=== PATIENT | male | born 1950 | race Caucasian/White ===

== ENCOUNTER 2021-11-27 14:41 | Inpatient (IN) | payer BC, OTHER ==
[~2021-11-27] VITALS: Ht 177.8 cm; Wt 106.1 kg
[2021-11-27 15:00] VITALS: BP_SYST 132
--- NOTE | 2021-11-27 15:39 | NUR ---
DR. GIORDANO IN AMBULACE ASSESSING PATIENT. COVID, MRSA AND FLU SWABS OBTAINED AND SENT TO LAB.
[2021-11-27 16:04] LABS: BASOPHILS # (AUTO) 0.1 K/uL (0.0-0.2); BASOPHILS % (AUTO) 0.7 % (0.0-2.0); EOSINOPHILS % (AUTO) 0.3 % (0.0-4.0); HEMATOCRIT 29.7 % (36-54); HEMOGLOBIN 9.5 g/dL (14.0-18.0); LYMPHOCYTES # (AUTO) 0.9 K/uL (1.0-5.5); LYMPHOCYTES % (AUTO) 5.3 % (20.5-51.5); MEAN CORPUSCULAR HEMOGLOBIN 29 pg (27-31); MEAN CORPUSCULAR HGB CONC 32 % (32-36); MEAN CORPUSCULAR VOLUME 92 fL (79.0-98.0); MONOCYTES # (AUTO) 1.2 K/uL (0.0-1.0); NEUTROPHILS # (AUTO) 14.3 K/uL (1.8-7.7); NEUTROPHILS % (AUTO) 86.7 % (40.0-70.0); PLATELET COUNT (AUTO) 216 K/uL (130-430); RED BLOOD CELL COUNT(AUTO) 3.23 MIL/uL (4.2-6.2); RED CELL DISTRIBUTION WIDTH 14.7 % (9.0-15.0); WHITE BLOOD COUNT (AUTO) 16.5 K/uL (4.8-10.8)
--- NOTE | 2021-11-27 16:12 | NUR ---
Placed in room 07 . Placed on cardiac technologist, blood pressure machine and pulse oximeter. To gown for exam. Side rails up. Report given to GERALDINE TREADWELL
--- NOTE | 2021-11-27 16:21 | NUR ---
X-Ray being done at bedside.
[2021-11-27 16:30] LABS: INR 1.1 (0.80-1.20); PROTHROMBIN TIME 11.1 SECS (9.5-12.5)
[2021-11-27] MEDS ORDERED: NS 500 ML IV ONE (16:30)
--- NOTE | 2021-11-27 16:30 | NUR ---
EKG performed at by [facility]. Physician given copy of EKG for review.
[2021-11-27 16:32] LABS: POTASSIUM 3.4 mmol/L (3.5-5.1); UREA NITROGEN, BLOOD 34 mg/dL (8-21)
--- NOTE | 2021-11-27 16:34 | NUR ---
# 20 gauge angiocath placed to left AC. Use of asceptic technique. Opsite placed over site. Blood return noted. Flushed with 10 cc of normal saline. No evidence of infiltration noted. Patient tolerated well.
[2021-11-27 16:42] LABS: ANION GAP 12 (5-15); CHLORIDE 101 mmol/L (98-107); CREATININE 2.27 mg/dL (0.55-1.30); GLUCOSE 131 mg/dL (70-99)
[2021-11-27] MEDS ORDERED: PIPERACILLIN/TAZO 3.375 GM in NS 50 ML IV ONE (16:45)
[2021-11-27] MEDS ORDERED: VANCOMYCIN HCL 1,000 MG in NS 250 ML IV ONE (16:45)
[2021-11-27] MEDS ORDERED: ACETAMINOPHEN 500 MG TABLET PO ONE (16:45)
[2021-11-27 17:03] LABS: ALANINE AMINOTRANSFERASE 13 U/L (12-78); ALBUMIN 2.1 g/dL (3.4-4.8); ASPARTATE AMINOTRANSFERASE 27 U/L (10-37); FREE T4 (FREE THYROXINE) 1.2 ng/dl (0.8-1.5); LIPASE 44 U/L (73-393); THYROID STIMULATING HORMONE 4.83 uIu/mL (0.36-3.74); TOTAL BILIRUBIN 0.4 mg/dL (0.0-1.0)
[2021-11-27] MEDS ORDERED: VANCOMYCIN HCL 1000 MG/VIAL IV ONE (17:10)
[2021-11-27] MEDS ORDERED: PIPERACILLIN/TAZOBACTAM 3.375 GM/VIAL (ZOSYN) IV ONE (17:11)
[2021-11-27] MEDS ORDERED: FUROSEMIDE 40 MG/4 ML VIAL IVP ONE (17:15)
[2021-11-27 17:40] LABS: GFR AFRICAN AMERICAN 37 mL/min (>90)
[2021-11-27] MEDS ORDERED: METO25TA6 PO (17:52)
[2021-11-27] MEDS ORDERED: GLUC1VIA14 IM (17:52)
[2021-11-27] MEDS ORDERED: INSU100V46 SQ (17:52)
[2021-11-27] MEDS ORDERED: INSU100V11 SQ (17:52)
[2021-11-27] MEDS ORDERED: HYDR-3919 PO (17:52)
[2021-11-27] MEDS ORDERED: BISA10SU65 RC (17:52)
[2021-11-27] MEDS ORDERED: NEU300 PO (17:52)
[2021-11-27] MEDS ORDERED: ASPI-524 PO (17:52)
[2021-11-27] MEDS ORDERED: LIP40 PO (17:52)
[2021-11-27] MEDS ORDERED: TAMS0.4C96 PO (17:52)
[2021-11-27] MEDS ORDERED: ACET325T39 PO (17:52)
[2021-11-27] MEDS ORDERED: IPRA3AMP9 INH (17:52)
[2021-11-27] MEDS ORDERED: HYDR-3917 PO (17:52)
[2021-11-27] MEDS ORDERED: AMIO200T66 PO (17:52)
[2021-11-27] MEDS ORDERED: MULT15TA3 PO (17:52)
[2021-11-27] MEDS ORDERED: LACT10SO66 PO (17:52)
[2021-11-27] MEDS ORDERED: SPIR25TA PO (17:52)
[2021-11-27] MEDS ORDERED: PRO40 PO (17:52)
[2021-11-27] MEDS ORDERED: VITA-285 PO (17:52)
[2021-11-27] MEDS ORDERED: CLOP75TA2 PO (17:52)
[2021-11-27] MEDS ORDERED: FURO-149 PO (17:52)
[2021-11-27] MEDS ORDERED: MELA1TAB17 PO (17:52)
[2021-11-27] MEDS ORDERED: NITROGLYCERIN 0.4 MG TAB.SUBL SL ONE (18:00)
--- NOTE | 2021-11-27 18:30 | NUR ---
Dr. Patel notified of pt's temp at 99.1F and HR fluctuating from 110 to 150's. No new orders at this time.
--- NOTE | 2021-11-27 18:43 | NUR ---
Admit bed requested Patient will be admitted to care of . Admitted TELEMETRY unit. Diagnosis NSTEMI PNEUMONIA Inpatient (Yes or No) YES Observation (Yes or No) NO Orientation concerns or request close to nursing station (Yes or No) NO Covid Status NEG On vent or bipap 3 L NC Isolation requirements NO Needs a NO From Home (Yes or if No enter name of facility) YES, [facility] Requires Dialysis (Yes or No) NO Med Rec Completed (Yes of No) YES
--- NOTE | 2021-11-27 18:43 | NUR ---
Update given to Dr. Roxy Huddleston
[2021-11-27] MEDS ORDERED: *HEPARIN PER PHARMACY XX ONE (18:45)
[2021-11-27] MEDS ORDERED: HEPARIN SODIUM,PORCINE 2000 UNITS/0.4 ML BOLUS IVP PRN (19:00)
[2021-11-27] MEDS ORDERED: HEPARIN SODIUM,PORCINE 3000 UNITS/0.6 ML BOLUS IVP PRN (19:00)
[2021-11-27] MEDS ORDERED: HEPARIN SODIUM,PORCINE 5,000 UNITS/ML VIAL IVP ONE (19:15)
--- NOTE | 2021-11-27 19:52 | NUR ---
Received report from AM RN Pt resting comfortably in bed AOX4 VSS Sinus tachy Able to make needs known NAD at this time Will continue to monitor
--- NOTE | 2021-11-27 23:49 | NUR ---
Patient will be admitted to [id number]. Belongings list completed. Complete and up to date summary report printed. SBAR report to be given at bedside with opportunity for questions.
[2021-11-27 23:50] VITALS: BP_SYST 115
[2021-11-28] VITALS (7 sets, daily range): BP systolic 108–127
--- NOTE | 2021-11-28 | NUR ---
pt.received via er-dept.pt.presents heparin-drip.rate;conc;1000-u/hr=10ml/hr.pt.presents o2 therapy via nasal cannulae.rate; 2l/min:o2-sat%=96%.pt.incontinent.pt.presents activity status bedrest.pt.presents wounds lower extremities bilateral.call light/telephone placed w/in access of the pt.
[2021-11-28] MEDS ORDERED: D5W 1,000 ML IV PRN (04:45)
[2021-11-28] MEDS ORDERED: DEXTROSE 50% JECT 50 ML DISP.SYRIN IVP PRN (04:45)
[2021-11-28] MEDS ORDERED: GLUCOSE (DEXTROSE) ORAL GEL -Adults PO PRN (04:45)
--- NOTE | 2021-11-28 06:30 | NUR ---
pt.assessed.heparin-drip infusing.ptt lab drawn@[id number].pt.cleaned/repositioned.blood glucose assessed value;152mg/dl. pt.weighed per chf/lasix administration protocol.no c/o pain,nausea.02-sat%=95%.call light/telephone placed w/in access of the pt.
[2021-11-28 06:43] LABS: BASOPHILS # (AUTO) 0.1 K/uL (0.0-0.2); BASOPHILS % (AUTO) 0.3 % (0.0-2.0); HEMATOCRIT 27.2 % (36-54); LYMPHOCYTES # (AUTO) 1.8 K/uL (1.0-5.5); LYMPHOCYTES % (AUTO) 8.7 % (20.5-51.5); MEAN CORPUSCULAR HEMOGLOBIN 30 pg (27-31); MEAN CORPUSCULAR HGB CONC 33 % (32-36); MEAN CORPUSCULAR VOLUME 92 fL (79.0-98.0); MONOCYTES # (AUTO) 1.3 K/uL (0.0-1.0); MONOCYTES % (AUTO) 6.2 % (1.7-9.3); NEUTROPHILS # (AUTO) 17.8 K/uL (1.8-7.7); NEUTROPHILS % (AUTO) 84.8 % (40.0-70.0); PLATELET COUNT (AUTO) 221 K/uL (130-430); RED BLOOD CELL COUNT(AUTO) 2.97 MIL/uL (4.2-6.2); RED CELL DISTRIBUTION WIDTH 14.7 % (9.0-15.0)
[2021-11-28 07:06] LABS: ALBUMIN 2.2 g/dL (3.4-4.8); CALCIUM 8.5 mg/dL (8.4-11.0); CREATININE 2.38 mg/dL (0.55-1.30); POTASSIUM 3.2 mmol/L (3.5-5.1); TOTAL BILIRUBIN 0.4 mg/dL (0.0-1.0)
[2021-11-28] MEDS: FUROSEMIDE 40 MG/4 ML VIAL IVP SCH ×2 (09:11→21:09)
[2021-11-28] MEDS ORDERED: FUROSEMIDE 40 MG/4 ML VIAL IVP SCH (09:15)
[2021-11-28] MEDS ORDERED: ACETAMINOPHEN 325 MG TABLET PO PRN (09:15)
[2021-11-28] MEDS ORDERED: METOPROLOL TARTRATE 25 MG TABLET PO ONE (09:45)
--- NOTE | 2021-11-28 10:00 | NUR ---
CONSULT: CARDIO CARDIAC CONSULT DR. CARLISLE [phone] S/W: BILL. OFFICE STAFF. DR. CARLISLE IS HERE AND IS AWARE.
--- NOTE | 2021-11-28 10:00 | NUR ---
Dr Herrera requested records from [facility]. Spoke to Niya from Release of Medical Info Unit. Confirmed request received and records will be sent later today.
[2021-11-28] MEDS: cefTRIAXone 1 GM in D5W 50 ML IV SCH (10:29)
--- NOTE | 2021-11-28 11:57 | NUR ---
blood sugar of 162mg/dl at lunch time not covered by insulin patient NPO for abdominal ultrasound today at 1600.
[2021-11-28] MEDS: IPRATROPIUM/ALBUTEROL SULFATE 3 ML AMPUL.NEB (DUONEB) INH SCH ×2 (13:32→19:58)
[2021-11-28] MEDS: GABAPENTIN 300 MG CAPSULE PO SCH (21:07)
[2021-11-28] MEDS: METOPROLOL TARTRATE 25 MG TABLET PO SCH (21:08)
[2021-11-28] MEDS: ATORVASTATIN 20 MG TABLET PO SCH (21:08)
[2021-11-28] MEDS: INSULIN REGULAR, HUMAN 100 UNITS/ML, 10 ML VIAL (humuLIN R) SUBCUT PRN (21:12)
[2021-11-28] MEDS ORDERED: HEPARIN 25,000 UNITS/D5W 250ML 250 ML IV ONE (21:18)
[2021-11-28] MEDS: HEPARIN 25,000 UNITS in 250 ML PREMIX IV PRN (21:19)
[2021-11-29] MEDS: IPRATROPIUM/ALBUTEROL SULFATE 3 ML AMPUL.NEB (DUONEB) INH SCH ×4 (01:00→20:14)
[2021-11-29 01:41] VITALS: BP_SYST 103
[2021-11-29] MEDS: INSULIN REGULAR, HUMAN 100 UNITS/ML, 10 ML VIAL (humuLIN R) SUBCUT PRN ×2 (05:53→22:30)
[2021-11-29 06:42] LABS: BASOPHILS # (AUTO) 0.1 K/uL (0.0-0.2); BASOPHILS % (AUTO) 0.4 % (0.0-2.0); EOSINOPHILS # (AUTO) 0.3 K/uL (0.0-0.4); EOSINOPHILS % (AUTO) 1.6 % (0.0-4.0); HEMATOCRIT 27.5 % (36-54); HEMOGLOBIN 9.1 g/dL (14.0-18.0); LYMPHOCYTES # (AUTO) 1.8 K/uL (1.0-5.5); LYMPHOCYTES % (AUTO) 10.1 % (20.5-51.5); MEAN CORPUSCULAR HEMOGLOBIN 30 pg (27-31); MEAN CORPUSCULAR HGB CONC 33 % (32-36); MEAN CORPUSCULAR VOLUME 92 fL (79.0-98.0); MONOCYTES # (AUTO) 1.1 K/uL (0.0-1.0); MONOCYTES % (AUTO) 5.9 % (1.7-9.3); NEUTROPHILS # (AUTO) 14.6 K/uL (1.8-7.7); PLATELET COUNT (AUTO) 199 K/uL (130-430); RED BLOOD CELL COUNT(AUTO) 3.01 MIL/uL (4.2-6.2); WHITE BLOOD COUNT (AUTO) 17.9 K/uL (4.8-10.8)
[2021-11-29 07:19] LABS: CALCIUM 7.6 mg/dL (8.4-11.0); CREATININE 1.52 mg/dL (0.55-1.30); POTASSIUM 3.4 mmol/L (3.5-5.1); TOTAL BILIRUBIN 0.3 mg/dL (0.0-1.0)
[2021-11-29] MEDS: cefTRIAXone 1 GM in D5W 50 ML IV SCH (10:00)
[2021-11-29] MEDS: ASPIRIN 81 MG TAB.CHEW PO SCH (10:20)
[2021-11-29] MEDS: TAMSULOSIN HCL 0.4 MG CAP PO SCH (10:20)
[2021-11-29] MEDS: METOPROLOL TARTRATE 25 MG TABLET PO SCH ×2 (10:20→22:11)
[2021-11-29] MEDS: SPIRONOLACTONE 25 MG TABLET (ALDACTONE) PO SCH (10:21)
[2021-11-29] MEDS: FUROSEMIDE 40 MG/4 ML VIAL IVP SCH ×2 (10:22→22:14)
[2021-11-29] MEDS: LACTULOSE 20 GM/30 ML UDC PO SCH (11:41)
[2021-11-29] MEDS: PANTOPRAZOLE SODIUM 40 MG TAB PO SCH (11:42)
[2021-11-29 12:02] VITALS: BP_SYST 114
[2021-11-29] MEDS: AZITHROMYCIN 250 MG in NS 250 ML IV SCH (13:26)
--- NOTE | 2021-11-29 16:30 | NUR ---
WOUND EVALUATION: Late note for 11/29/2021 at 1630 secondary to patient care. Wound Consult received from Dr. Guerrero. Thank you, Dr. Guerrero, for the consult. Patient received in a [place] Bed with an Isoflex WILLI mattress, awake, alert, and oriented. Patient is unable to turn independently. Diego Score is a 16. Past Medical History: Coronary Artery Disease, CABG, Neuropathy, Essential Hypertension, Insulin-Dependent Diabetes Mellitus, Atrial Fibrillation, severe Cardiomyopathy. Recent Labs: WBC 17.9, RBC 3.01, hemoglobin 9.1, hematocrit 27.5, potassium 3.4, BUN 45, creatinine 1.52, GFR 49, glucose 163, POC glucose 182, calcium 7.6, serum total protein 6.2, BNP 1360, albumin 2.0, PTT 28.3. Microbiology: MRSA screen results negative. Blood culture results x2 in progress. Pleural fluid culture results in progress. Body fluid culture results in progress. Intrinsic factors that delay wound healing: Coronary Artery Disease, CABG, Neuropathy, Insulin-Dependent Diabetes Mellitus, Atrial Fibrillation, severe Cardiomyopathy, Hyperglycemia, Hypoalbuminemia. Extrinsic factors that delay wound healing: Decreased mobility. Wound Assessment: 1. Left Proximal Medial Calf: Wound, probable venous insufficiency ulcer, present on admission. Wound bed has 100% yellow eschar. No odor, no drainage. Dry, stable. Extremity and foot have dry scaly skin can and 4+ pitting edema. Wound measures 2.7 cm x 2.9 cm. 2. Left Distal Medial Calf: Wound, present on admission. Wound bed has 100% brown eschar. No odor, no drainage. Periwound intact. Dry, stable. Extremity and foot have dry scaly skin can and 4+ pitting edema.Wound measures 1.4 cm x 1.1 cm. 3. Right Distal Anterior Forman: Two small brown scabs, present on admission. No odor, no drainage. Dry, stable. Extremity and foot have dry scaly skin can and 4+ pitting edema. Recommend: No dressings needed. Continue to monitor sites every shift. Apply Eucerin cream to bilateral lower extremities twice daily. Also recommend: Reposition patient every 2 hours with pillow support and off-load pressure areas with pillows for pressure re-distribution. Offload, elevate and float bilateral heels with pillows. Perform skin care and monitor skin integrity Q shift.
[2021-11-29 16:32] VITALS: BP_SYST 94
--- NOTE | 2021-11-29 16:59 | NUR ---
Dietitian Recommendations * CCHO, cardiac diet, Glucerna BID, Antonio BID (supplements yield an additional 840 kcal/day, 35 gm protein/day) * Encourage increase PO intakes LP, MS, RD Please refer to Nutrition Assessment for details. Addendum: 11/29/21 at [address] Amended: Links added.
[2021-11-29 17:45] LABS: SOURCE/TYPE ,BODY FLUID THORACENTESIS
[2021-11-29 17:46] LABS: BF APPEARANCE UNSPUN HAZY (CLEAR); BODY FLUID COLOR YELLOW (LT YELLOW)
[2021-11-29 17:47] LABS: BODY FLUID OTHER CELLS 0 %; BODY FLUID TOTAL VOLUME 350 mL; EOSINOPHIL, BODY FLUID 0 %; LYMPHOCYTES, BODY FLUID 80 %; MONOCYTES,BODY FLUID 3 %; NEUTROPHIL, BODY FLUID 17 %; RBC, BODY FLUID 6690 /uL; WBC, BODY FLUID 360 /uL
--- NOTE | 2021-11-29 19:30 | NUR ---
OPENING NOTES Received report from day nurse. Pt resting in bed with eyes closed, HOB nearly 90 degrees, and breathing slightly labored with some accessory muscle use. Respirations 24 bpm and SaO2 96%. Pt stable so left to rest, will return soon for medication administration and continue to monitor. Bed at lowest position, armed, and call light in hand.
[2021-11-29 20:00] VITALS: BP_SYST 104
[2021-11-29] MEDS: GABAPENTIN 300 MG CAPSULE PO SCH (21:54)
[2021-11-29] MEDS: ATORVASTATIN 20 MG TABLET PO SCH (21:54)
[2021-11-30] VITALS: BP_SYST 103
[2021-11-30] MEDS: IPRATROPIUM/ALBUTEROL SULFATE 3 ML AMPUL.NEB (DUONEB) INH SCH ×4 (01:00→20:08)
[2021-11-30 06:56] LABS: BASOPHILS # (AUTO) 0.1 K/uL (0.0-0.2); BASOPHILS % (AUTO) 0.5 % (0.0-2.0); EOSINOPHILS # (AUTO) 0.5 K/uL (0.0-0.4); EOSINOPHILS % (AUTO) 3.9 % (0.0-4.0); HEMATOCRIT 24.9 % (36-54); HEMOGLOBIN 8.4 g/dL (14.0-18.0); LYMPHOCYTES # (AUTO) 1.1 K/uL (1.0-5.5); LYMPHOCYTES % (AUTO) 8.1 % (20.5-51.5); MEAN CORPUSCULAR HEMOGLOBIN 31 pg (27-31); MEAN CORPUSCULAR HGB CONC 34 % (32-36); MEAN CORPUSCULAR VOLUME 91 fL (79.0-98.0); MONOCYTES % (AUTO) 7.3 % (1.7-9.3); NEUTROPHILS # (AUTO) 10.7 K/uL (1.8-7.7); NEUTROPHILS % (AUTO) 80.2 % (40.0-70.0); PLATELET COUNT (AUTO) 195 K/uL (130-430); RED BLOOD CELL COUNT(AUTO) 2.73 MIL/uL (4.2-6.2); RED CELL DISTRIBUTION WIDTH 14.9 % (9.0-15.0); WHITE BLOOD COUNT (AUTO) 13.3 K/uL (4.8-10.8)
[2021-11-30] MEDS: INSULIN REGULAR, HUMAN 100 UNITS/ML, 10 ML VIAL (humuLIN R) SUBCUT PRN ×3 (06:59→16:35)
--- NOTE | 2021-11-30 08:05 | NUR ---
Report received from nightclub manager RN Leanna for continuity ofcare. Patient in stable condition. No distress noted.
[2021-11-30 08:06] VITALS: BP_SYST 99
[2021-11-30] MEDS: METOPROLOL TARTRATE 25 MG TABLET PO SCH ×2 (09:10→21:33)
[2021-11-30] MEDS: SPIRONOLACTONE 25 MG TABLET (ALDACTONE) PO SCH (09:10)
[2021-11-30] MEDS: PANTOPRAZOLE SODIUM 40 MG TAB PO SCH (09:10)
[2021-11-30] MEDS: ASPIRIN 81 MG TAB.CHEW PO SCH (09:10)
[2021-11-30] MEDS: TAMSULOSIN HCL 0.4 MG CAP PO SCH (09:10)
[2021-11-30] MEDS: LACTULOSE 20 GM/30 ML UDC PO SCH (09:10)
[2021-11-30] MEDS: FUROSEMIDE 40 MG/4 ML VIAL IVP SCH ×2 (09:11→21:31)
[2021-11-30] MEDS: HEPARIN 25,000 UNITS in 250 ML PREMIX IV PRN (09:29)
[2021-11-30] MEDS: AZITHROMYCIN 250 MG in NS 250 ML IV SCH (09:34)
[2021-11-30 12:00] VITALS: BP_SYST 127
[2021-11-30] MEDS: cefTRIAXone 1 GM in D5W 50 ML IV SCH (12:13)
[2021-11-30] MEDS ORDERED: metOLazone 2.5 MG TABLET PO ONE (13:00)
[2021-11-30] MEDS ORDERED: EMOLLIENT COMBINATION NO.73 78 GM CREAM..G. TP ONE (14:30)
[2021-11-30 16:38] VITALS: BP_SYST 105
--- NOTE | 2021-11-30 18:00 | NUR ---
Patient stable throughout the whole shift. PTT lab checked with heparin drip adjusted.
--- NOTE | 2021-11-30 19:45 | NUR ---
OPENING NOTES Received report from day nurse. Pt laying in bed awake with HOB raised high. Pt recognized me as his nurse from previous shift and asked what was the plan for him? Pt was agitated at the lack of communication about his care and stated that he was not getting better. I provided him with as much information as I could and he was grateful. Pt was struggling to speak only being able to say a few words at a time. He abdominal girth appears larger than it did prior shift. I adjusted his position so he could expand his lungs and reduce his work of breathing. Will closely monitor the pt and communicate with RT throughout the night.
--- NOTE | 2021-11-30 19:55 | NUR ---
Report given to GERALDINE Ram for continuity of care. Patient stable condition. No distress noted. Will continue to monitor.
--- NOTE | 2021-11-30 19:56 | NUR ---
Heparin drip double checked with GERALDINE martínez. No distress noted.
[2021-11-30] MEDS: EMOLLIENT COMBINATION NO.73 78 GM CREAM..G. TP SCH (21:00)
[2021-11-30] MEDS: ATORVASTATIN 20 MG TABLET PO SCH (21:32)
[2021-11-30] MEDS: GABAPENTIN 300 MG CAPSULE PO SCH (21:33)
--- NOTE | 2021-11-30 22:05 | NUR ---
NOTES At 2205 the patient calls nurses station requesting his nurse. When I arrive, he is having difficult time breathing with rapid shallow breaths and using accessory muscles. Respirations 36, SaO2 92%. I calmed the pt and again repositioned him and raised his oxygen to 3L via nasal cannula. The interventions were effective with SaO2 increasing to 98% and respirations decreasing to 24 bpm. Will continue to monitor, call light in hand.
[2021-12-01] VITALS (14 sets, daily range): BP systolic 95–138
[2021-12-01] MEDS: IPRATROPIUM/ALBUTEROL SULFATE 3 ML AMPUL.NEB (DUONEB) INH SCH ×4 (01:57→19:44)
--- NOTE | 2021-12-01 04:05 | NUR ---
NOTES While doing rounds before lunch, pt sitting in bed visually laboring stating it was difficult to breath. He said RT had recently given him a breathing treatment and he woke up d/t difficulty breathing. Calming and repositioning helped the patient breath easier. Pt asked if I had medication to help his breathing feeling that the breathing treatments were not effective. Spoke to RT to see if there were other options. Pt was stabilized and will continue to monitor.
--- NOTE | 2021-12-01 07:00 | NUR ---
Report received from plant operator/shift supervisor RN for continuity of care. Patient in stable condition. No distress noted. Will continue to monitor. Call light within reach.
[2021-12-01] MEDS: INSULIN REGULAR, HUMAN 100 UNITS/ML, 10 ML VIAL (humuLIN R) SUBCUT PRN ×4 (08:04→21:44)
[2021-12-01 08:05] LABS: ALBUMIN 1.8 g/dL (3.4-4.8); CALCIUM 8.3 mg/dL (8.4-11.0); CREATININE 2.14 mg/dL (0.55-1.30); POTASSIUM 3.5 mmol/L (3.5-5.1); TOTAL BILIRUBIN 0.1 mg/dL (0.0-1.0)
[2021-12-01] MEDS: HEPARIN 25,000 UNITS in 250 ML PREMIX IV PRN (08:40)
[2021-12-01] MEDS: AZITHROMYCIN 250 MG in NS 250 ML IV SCH (08:50)
[2021-12-01] MEDS: LACTULOSE 20 GM/30 ML UDC PO SCH (08:51)
[2021-12-01] MEDS: ASPIRIN 81 MG TAB.CHEW PO SCH (08:51)
[2021-12-01] MEDS: TAMSULOSIN HCL 0.4 MG CAP PO SCH (08:51)
[2021-12-01] MEDS: metOLazone 2.5 MG TABLET PO SCH (08:51)
[2021-12-01] MEDS: SPIRONOLACTONE 25 MG TABLET (ALDACTONE) PO SCH (08:53)
[2021-12-01] MEDS: METOPROLOL TARTRATE 25 MG TABLET PO SCH ×2 (08:53→21:25)
[2021-12-01] MEDS: PANTOPRAZOLE SODIUM 40 MG TAB PO SCH (08:53)
[2021-12-01] MEDS: FUROSEMIDE 40 MG/4 ML VIAL IVP SCH (08:53)
[2021-12-01] MEDS: EMOLLIENT COMBINATION NO.73 78 GM CREAM..G. TP SCH ×2 (08:54→21:26)
--- NOTE | 2021-12-01 10:42 | NUR ---
Spoke with Dr. Guerrero. Called radiology for patient to be tapped for thoracentesis today. Also hold blood pressure meds for 24 hours today. Will let rehab specialist RN know.
--- NOTE | 2021-12-01 11:20 | NUR ---
TO ICU RECEIVED PT TO ROOM 6, ALERT, TACHYPNEIC, ON O2 VIA NASAL CANNULA AT 2L, TRANSFERRED TO ICU BED, SLIDER UNDER FOR EASY MOVEMENT. PT ON HEPARIN DRIP AT 1200 UNITS/HR, PTT 60. IV IN RIGHT A/C, ROCEPHIN INFUSING. BLOOD PRESSURE 118/66. BLADDER INCONTINENT, CLEAN ABSORBENT PAD PROVIDED. ABDOMEN NOTED WITH 3 STITCHES, ALL DRY.
--- NOTE | 2021-12-01 11:20 | NUR ---
Report given to GERALDINE Joy ICU. Patient in stable condition. Still having shortness of breath. Dr. Moffett and Dr. Espinoza went to see patient. Transfer order to ICU. Patient on oxygen and heparin drip. Patient still responsive to verbal commands. No distress noted. Vital signs stable. Assisted with patient transfer.
[2021-12-01] MEDS: cefTRIAXone 1 GM in D5W 50 ML IV SCH (11:50)
[2021-12-01] MEDS ORDERED: FUROSEMIDE 100 MG in D5W 90 ML IV SCH (13:15)
--- NOTE | 2021-12-01 14:26 | NUR ---
PAGED DR VOSS, AND HE RETURNED THE CALL. INFORMED HIM THAT THE MANAGER VISUAL WAS HERE AND THORACENTESIS WILL NOT BE DONE TODAY. PT'S ABDOMINAL PRESSURE IS GONE THOUGH AFTER INSERTING A ANTONIO CATHETER. PT WITH HEMATURIA. REMAINS ON HEPARIN DRIP. NEW ORDERS RECEIVED FROM .
[2021-12-01] MEDS: ALBUMIN HUMAN 25% 100 ML IV SCH ×3 (14:33→21:28)
[2021-12-01] MEDS: ATORVASTATIN 20 MG TABLET PO SCH (21:24)
[2021-12-01] MEDS: GABAPENTIN 300 MG CAPSULE PO SCH (21:25)
--- NOTE | 2021-12-01 23:33 | NUR ---
Spoke with Dr Guerrero regarding continued blood diuresis of 2L since 1800. Notified of heparin and lasix gtts running and rates. Dr Guerrero asked undersigned to page Dr Herrera for orders. Dr Herrera being paged by charge nurse.
[2021-12-02] VITALS (22 sets, daily range): BP systolic 93–117
[2021-12-02] MEDS: IPRATROPIUM/ALBUTEROL SULFATE 3 ML AMPUL.NEB (DUONEB) INH SCH ×4 (01:07→20:21)
[2021-12-02 01:41] LABS: BASOPHILS # (AUTO) 0.1 K/uL (0.0-0.2); BASOPHILS % (AUTO) 0.5 % (0.0-2.0); EOSINOPHILS # (AUTO) 0.6 K/uL (0.0-0.4); HEMATOCRIT 23.7 % (36-54); LYMPHOCYTES # (AUTO) 1.4 K/uL (1.0-5.5); LYMPHOCYTES % (AUTO) 14.6 % (20.5-51.5); MEAN CORPUSCULAR HEMOGLOBIN 31 pg (27-31); MEAN CORPUSCULAR HGB CONC 34 % (32-36); MEAN CORPUSCULAR VOLUME 92 fL (79.0-98.0); MONOCYTES # (AUTO) 1.1 K/uL (0.0-1.0); MONOCYTES % (AUTO) 10.8 % (1.7-9.3); NEUTROPHILS # (AUTO) 6.6 K/uL (1.8-7.7); NEUTROPHILS % (AUTO) 68.1 % (40.0-70.0); PLATELET COUNT (AUTO) 180 K/uL (130-430); RED BLOOD CELL COUNT(AUTO) 2.58 MIL/uL (4.2-6.2); RED CELL DISTRIBUTION WIDTH 14.9 % (9.0-15.0); WHITE BLOOD COUNT (AUTO) 9.8 K/uL (4.8-10.8)
[2021-12-02 01:49] LABS: CALCIUM 8.9 mg/dL (8.4-11.0); CREATININE 1.96 mg/dL (0.55-1.30)
[2021-12-02] MEDS ORDERED: POTASSIUM CHLORIDE 20 MEQ TAB.PRT.SR PO ONE ×2 (04:45→11:00)
[2021-12-02] MEDS: SPIRONOLACTONE 25 MG TABLET (ALDACTONE) PO SCH (09:24)
[2021-12-02] MEDS: ASPIRIN 81 MG TAB.CHEW PO SCH (09:25)
[2021-12-02] MEDS: FUROSEMIDE 40 MG/4 ML VIAL IVP SCH ×2 (09:25→20:36)
[2021-12-02] MEDS: LACTULOSE 20 GM/30 ML UDC PO SCH (09:25)
[2021-12-02] MEDS: TAMSULOSIN HCL 0.4 MG CAP PO SCH (09:25)
[2021-12-02] MEDS: METOPROLOL TARTRATE 25 MG TABLET PO SCH ×2 (09:26→20:37)
[2021-12-02] MEDS: CLOPIDOGREL BISULFATE 75 MG TABLET PO SCH (09:26)
[2021-12-02] MEDS: PANTOPRAZOLE SODIUM 40 MG TAB PO SCH (09:26)
[2021-12-02] MEDS: metOLazone 2.5 MG TABLET PO SCH (09:26)
[2021-12-02] MEDS: EMOLLIENT COMBINATION NO.73 78 GM CREAM..G. TP SCH ×2 (09:27→20:37)
[2021-12-02] MEDS: AZITHROMYCIN 250 MG in NS 250 ML IV SCH (09:28)
[2021-12-02] MEDS ORDERED: CEFEPIME 1 GM in D5W 50 ML IV ONE (10:00)
[2021-12-02] MEDS ORDERED: POTASSIUM CHLORIDE 20 MEQ TAB.PRT.SR ONE (11:02)
[2021-12-02] MEDS: INSULIN REGULAR, HUMAN 100 UNITS/ML, 10 ML VIAL (humuLIN R) SUBCUT PRN (11:13)
--- NOTE | 2021-12-02 13:03 | NUR ---
I.D CONSULT PATIENT WAS EXAMINED BY DR QUIROZ.
--- NOTE | 2021-12-02 13:30 | NUR ---
Nutrition F/U Admitting Diagnosis NSTEMI, pneumonia Reviewed Pertinent Medical/Surgical Hx Medical Record Patient Other Medical History Comment: PMH: CAD, CABG, neuropathy, essential HTN, IDDM, atr fibr, and severe cardiomyopathy per physician notes Pt also found w/ CHF, CAD, and fever likely pneumonia per physician notes Subjective Information Nutrition Consult received 11/28/21 0222 d/t diabetic cellulitis. RD rounded to pt's bedside this afternoon. Primary RN providing care. Pt was sleeping, visibly obese w/ excessive adiposity throughout entire body. RN reported that pt ate well at lunch, was NPO at breakfast for thoracentesis, and that pt has been sleepy since lunch. RN reported that pt had 325 ml out during thoracentesis, and was pending abd US this afternoon. Plan for strict I&O w/ condom catheter and no current plan for FR at this time per RN report. Per EMR review, pt is on 3 l O2 via NC; negligible PO intakes noted. Pt is not yet meeting optimal nutritional needs. Current Diet Order/Nutrition Support CCHO x1 day Patient/Significant Other Unable To Verbalize Education Provided Not Indicated Pertinent Medications aldactone, protonix, lactulose, lopressor, lipitor, lasix, SSI Pertinent Labs K 3.4 L, BG 163 H, POC BG 164 H, BUN 45 H, CRE 1.52 H, ALB 2 L, WBC 17.9 H Height (Feet) 5 feet Height (Inches) 10.00 inches Weight (Pounds) 234 pounds Weight (Calculated Kilograms) 106.331939 kilograms Patient Weight 106.141 kg Body Mass Index 33.57 kg/m2 %IBW [address] [place]/Adjusted Body Weight 166#/75.5 kg. 183#/83.2 kg Recent Weight Change Unable to verify Weight Status Obese Food Allergies Unable to verify Usual Diet At Home CCHO per nursing nutritional screening Skin Integrity Comment: Diego scale: 13 -- abd incision/sutures intact to 3 lap sites and medial R calf w/ dry scab per EMR revoewRN reported sacrum w/ stage 2 wound; RD reviewed hard chart wound photos Estimated Energy Expenditure (kcals/day) 6162-0684 (30-35 kcal/kg IBW d/t acute state, wound healing, obesity) Estimated Protein Required (g/day) 91-113 (1.2-1.5 gm/kg IBW d/t acute state, wound healing, obesity) Estimated Fluid Required (l/day) Per physician d/t CHF Problem/Etiology/Signs/Symptoms Increased nutritional needs R/T metabolic demands AEB estimated nutritional requirements for acute state/wound healing. *Ongoing Altered nutrition-related labs R/T endocrine dysfunction AEB elevated BG/POC BG lab values. *Ongoing Expected Outcomes/Goals - Monitor appetite and PO intakes w/ goal of pt meeting >75% of estimated nutritional needs, labs trending WNL, normal GI function, and skin integrity/wt maintenance Dietitian Recommendations * Continue CCHO, cardiac diet, Glucerna BID, Antonio BID (supplements yield an additional 840 kcal/day, 35 gm protein/day) * Maximum encouragement at meal times to increase PO intakes Follow Up High Risk: F/U in 2-3days Addendum: 12/02/21 at [address] PLEASE DISREGARD NOTE. ENTERED IN ERROR.
--- NOTE | 2021-12-02 13:30 | NUR ---
Nutrition F/U Admitting Diagnosis NSTEMI, pneumonia Reviewed Pertinent Medical/Surgical Hx Medical Record Patient Other Medical History Comment: PMH: CAD, CABG, neuropathy, essential HTN, IDDM, atr fibr, and severe cardiomyopathy per physician notes Pt also found w/ CHF, CAD, fever likely pneumonia, and CKD per physician notes Subjective Information: RD rounded to ICU this afternoon. Pt was receiving BT w/ RT at bedside during RD rounds. Primary RN reported that pt seems to be having some anxiety and very low appetite. He reported that pt was transferred to ICU yesterday morning d/t SOB and chest pain. Per EMR review, plans for F/U chest XR and L thoracentesis tomorrow; pt is on 3 L O2 via NC; suspected poor appetite; abd is soft w/ active bowel sounds; LBM x2 12/01; 2+ pitting edema to BLE. RD called pt's son Loy to inquire about pt's food preferences. He stated that pt prefers sweets (ie: fruit cocktail, yogurt, puddings) and soups. Current diet order remains appropriate, however, maximum encouragement at meal times is warranted to prevent malnutrition. Current Diet Order/Nutrition Support: CCHO, Cardiac diet, Glucerna BID, Antonio BID x2 days Patient/Significant Other Unable To Verbalize Education Provided Not Indicated Pertinent Medications: plavix, lasix, aldactone, protonix, lactulose, lopressor, SSI Pertinent Labs: K 3 L, BG 173 H, POC BG 166 H, BUN 39 H, CRE 1.96 H, ALB 1.8 L, WBC 9.8 WNL Height (Feet) 5 feet Height (Inches) 10.00 inches Weight (Pounds) 234 pounds -- stable since 11/29 Patient Weight 106.141 kg Body Mass Index 33.57 kg/m2 %IBW 141 [place]/Adjusted Body Weight 166#/75.5 kg. 183#/83.2 kg Recent Weight Change Unable to verify Weight Status Obese Food Allergies Unable to verify Usual Diet At Home CCHO per nursing nutritional screening Skin Integrity Comment: Diego scale: 13 -- abd incision/sutures intact to 3 lap sites and medial R calf w/ dry scab per EMR review Estimated Energy Expenditure (kcals/day) 1455-6584 (30-35 kcal/kg IBW d/t acute state, wound healing, obesity) Estimated Protein Required (g/day) 91-113 (1.2-1.5 gm/kg IBW d/t acute state, wound healing, obesity) Estimated Fluid Required (l/day) Per physician d/t CHF Problem/Etiology/Signs/Symptoms Increased nutritional needs R/T metabolic demands AEB estimated nutritional requirements for acute state/wound healing. *Ongoing Altered nutrition-related labs R/T endocrine dysfunction AEB elevated BG/POC BG lab values. *Ongoing Expected Outcomes/Goals - Monitor appetite and PO intakes w/ goal of pt meeting >75% of estimated nutritional needs, labs trending WNL, normal GI function, and skin integrity/wt maintenance Dietitian Recommendations * Continue CCHO, cardiac diet, Glucerna BID, Antonio BID (supplements yield an additional 840 kcal/day, 35 gm protein/day) * Maximum encouragement at meal times to increase PO intakes Follow Up High Risk: F/U in 2-3 days Addendum: 12/02/21 at [address] Son reported pt would prefer strawberry and chocolate-flavored Glucerna and fruit punch-flavored Antonio supplements. RD noted preferences in [employer].
--- NOTE | 2021-12-02 13:35 | NUR ---
Dietitian Recommendations * Continue CCHO, cardiac diet, Glucerna BID, Antonio BID (supplements yield an additional 840 kcal/day, 35 gm protein/day) * Maximum encouragement at meal times to increase PO intakes LP, MS, RD Please refer to Nutrition F/U for details.
[2021-12-02] MEDS: ATORVASTATIN 20 MG TABLET PO SCH (20:37)
[2021-12-02] MEDS: GABAPENTIN 300 MG CAPSULE PO SCH (20:37)
[2021-12-02] MEDS: CEFEPIME 1 GM in D5W 50 ML IV SCH (23:09)
[2021-12-03] VITALS (21 sets, daily range): BP systolic 91–127
[2021-12-03] MEDS: IPRATROPIUM/ALBUTEROL SULFATE 3 ML AMPUL.NEB (DUONEB) INH SCH ×4 (01:31→19:12)
[2021-12-03 06:24] LABS: BASOPHILS # (AUTO) 0.1 K/uL (0.0-0.2); BASOPHILS % (AUTO) 0.7 % (0.0-2.0); EOSINOPHILS # (AUTO) 0.8 K/uL (0.0-0.4); EOSINOPHILS % (AUTO) 7.1 % (0.0-4.0); HEMATOCRIT 23.1 % (36-54); HEMOGLOBIN 7.7 g/dL (14.0-18.0); LYMPHOCYTES # (AUTO) 1.5 K/uL (1.0-5.5); LYMPHOCYTES % (AUTO) 13.5 % (20.5-51.5); MEAN CORPUSCULAR HEMOGLOBIN 30 pg (27-31); MEAN CORPUSCULAR HGB CONC 34 % (32-36); MEAN CORPUSCULAR VOLUME 90 fL (79.0-98.0); MONOCYTES # (AUTO) 0.9 K/uL (0.0-1.0); NEUTROPHILS # (AUTO) 8.1 K/uL (1.8-7.7); NEUTROPHILS % (AUTO) 70.7 % (40.0-70.0); PLATELET COUNT (AUTO) 214 K/uL (130-430); RED BLOOD CELL COUNT(AUTO) 2.55 MIL/uL (4.2-6.2); RED CELL DISTRIBUTION WIDTH 14.7 % (9.0-15.0); WHITE BLOOD COUNT (AUTO) 11.5 K/uL (4.8-10.8)
[2021-12-03] MEDS: INSULIN REGULAR, HUMAN 100 UNITS/ML, 10 ML VIAL (humuLIN R) SUBCUT PRN ×3 (06:49→17:39)
[2021-12-03 07:36] LABS: ALBUMIN 2.5 g/dL (3.4-4.8); POTASSIUM 3.2 mmol/L (3.5-5.1); TOTAL BILIRUBIN 0.4 mg/dL (0.0-1.0)
[2021-12-03 07:59] LABS: CALCIUM 8.9 mg/dL (8.4-11.0); CREATININE 1.72 mg/dL (0.55-1.30)
[2021-12-03] MEDS ORDERED: LIDOCAINE 1%, 20 ML MDV 20 ML ONE (08:24)
[2021-12-03] MEDS: FUROSEMIDE 40 MG/4 ML VIAL IVP SCH ×2 (08:33→22:31)
[2021-12-03] MEDS: LACTULOSE 20 GM/30 ML UDC PO SCH (08:34)
[2021-12-03] MEDS: SPIRONOLACTONE 25 MG TABLET (ALDACTONE) PO SCH (08:34)
[2021-12-03] MEDS: TAMSULOSIN HCL 0.4 MG CAP PO SCH (08:34)
[2021-12-03] MEDS: ASPIRIN 81 MG TAB.CHEW PO SCH (08:34)
[2021-12-03] MEDS: CLOPIDOGREL BISULFATE 75 MG TABLET PO SCH (08:35)
[2021-12-03] MEDS: METOPROLOL TARTRATE 25 MG TABLET PO SCH ×2 (08:35→22:32)
[2021-12-03] MEDS: PANTOPRAZOLE SODIUM 40 MG TAB PO SCH (08:35)
[2021-12-03] MEDS: EMOLLIENT COMBINATION NO.73 78 GM CREAM..G. TP SCH ×2 (08:36→21:00)
[2021-12-03] MEDS: metOLazone 2.5 MG TABLET PO SCH (08:36)
[2021-12-03] MEDS: AZITHROMYCIN 250 MG in NS 250 ML IV SCH (08:37)
[2021-12-03] MEDS: CEFEPIME 1 GM in D5W 50 ML IV SCH (09:38)
--- NOTE | 2021-12-03 11:05 | NUR ---
Assumed care of this patient, stable but tachy, denies pain at this time, did his blood sugar and gave him his scheduled medicationsWill continue to monitor him.
[2021-12-03 15:36] LABS: BF APPEARANCE UNSPUN HAZY (CLEAR); SOURCE/TYPE ,BODY FLUID THORACENTESIS
[2021-12-03 15:37] LABS: BODY FLUID COLOR YELLOW (LT YELLOW); BODY FLUID TOTAL VOLUME 590 mL; EOSINOPHIL, BODY FLUID 0 %; LYMPHOCYTES, BODY FLUID 65 %; MONOCYTES,BODY FLUID 12 %; NEUTROPHIL, BODY FLUID 23 %; RBC, BODY FLUID 1940 /uL; WBC, BODY FLUID 180 /uL
[2021-12-03 19:43] LABS: BODY FLUID GLUCOSE 179 mg/dL; BODY FLUID TOTAL PROTEIN 3.5 g/dL
[2021-12-03] MEDS: GABAPENTIN 300 MG CAPSULE PO SCH (22:32)
[2021-12-03] MEDS: ATORVASTATIN 20 MG TABLET PO SCH (22:35)
[2021-12-04] MEDS: IPRATROPIUM/ALBUTEROL SULFATE 3 ML AMPUL.NEB (DUONEB) INH SCH ×4 (00:29→19:00)
--- NOTE | 2021-12-04 03:15 | NUR ---
Did irrigation of patients Bolivar, minimal clots came out, catheter patent with 500mls of bloody urine in bag which was emptied.
--- NOTE | 2021-12-04 05:17 | NUR ---
Went to check on patient, he had pulled out all the IV catheters and the midline, all catheters were intact, he verbalized he does not want to be pricked again, this RN explained to him the benefits of the iv with no success, to give him a little more time to settle down then to endorse to oncoming shift to talk to him if another peripheral is to be inserted,will continue to monitor him.
[2021-12-04 06:58] LABS: BASOPHILS # (AUTO) 0.1 K/uL (0.0-0.2); BASOPHILS % (AUTO) 0.6 % (0.0-2.0); EOSINOPHILS # (AUTO) 1.3 K/uL (0.0-0.4); EOSINOPHILS % (AUTO) 10.1 % (0.0-4.0); HEMATOCRIT 23.8 % (36-54); LYMPHOCYTES # (AUTO) 1.6 K/uL (1.0-5.5); LYMPHOCYTES % (AUTO) 12.9 % (20.5-51.5); MEAN CORPUSCULAR HEMOGLOBIN 30 pg (27-31); MEAN CORPUSCULAR HGB CONC 34 % (32-36); MEAN CORPUSCULAR VOLUME 90 fL (79.0-98.0); MONOCYTES # (AUTO) 0.8 K/uL (0.0-1.0); NEUTROPHILS # (AUTO) 8.9 K/uL (1.8-7.7); NEUTROPHILS % (AUTO) 70.4 % (40.0-70.0); PLATELET COUNT (AUTO) 252 K/uL (130-430); RED BLOOD CELL COUNT(AUTO) 2.65 MIL/uL (4.2-6.2); RED CELL DISTRIBUTION WIDTH 14.5 % (9.0-15.0); WHITE BLOOD COUNT (AUTO) 12.7 K/uL (4.8-10.8)
--- NOTE | 2021-12-04 07:30 | NUR ---
Report received from security shift supervisor RN for continuity of care. Patient stable condition. No distress noted. Patient refusing things from night. Orienting patient and patient agreeable to plan of care.
--- NOTE | 2021-12-04 07:30 | NUR ---
Received report from maintenance mechanic 2nd shift RN for continuity of care. Patient in stable condition. No distress noted.
--- NOTE | 2021-12-04 07:34 | NUR ---
Patient sleeping at this time, endorsed to Ehsan for continuity of care.
[2021-12-04] MEDS: LACTULOSE 20 GM/30 ML UDC PO SCH (08:11)
[2021-12-04] MEDS: metOLazone 2.5 MG TABLET PO SCH (08:11)
[2021-12-04] MEDS: PANTOPRAZOLE SODIUM 40 MG TAB PO SCH (08:12)
[2021-12-04] MEDS: EMOLLIENT COMBINATION NO.73 78 GM CREAM..G. TP SCH ×2 (08:12→20:20)
[2021-12-04] MEDS: CLOPIDOGREL BISULFATE 75 MG TABLET PO SCH (08:12)
[2021-12-04] MEDS: FUROSEMIDE 40 MG/4 ML VIAL IVP SCH (08:12)
[2021-12-04] MEDS: TAMSULOSIN HCL 0.4 MG CAP PO SCH (08:12)
[2021-12-04] MEDS: METOPROLOL TARTRATE 25 MG TABLET PO SCH (08:13)
[2021-12-04] MEDS: SPIRONOLACTONE 25 MG TABLET (ALDACTONE) PO SCH (08:13)
[2021-12-04] MEDS: ASPIRIN 81 MG TAB.CHEW PO SCH (08:13)
[2021-12-04 08:27] VITALS: BP_SYST 112
--- NOTE | 2021-12-04 10:30 | NUR ---
Patient tugging on macdonald catheter, cardiac leads, and IV. Dr. Guerrero made aware. New order noted and carried out.
[2021-12-04 11:28] VITALS: BP_SYST 106
[2021-12-04] MEDS: INSULIN REGULAR, HUMAN 100 UNITS/ML, 10 ML VIAL (humuLIN R) SUBCUT PRN ×3 (12:27→20:26)
[2021-12-04 16:30] VITALS: BP_SYST 104
[2021-12-04 19:50] VITALS: BP_SYST 109
--- NOTE | 2021-12-04 20:03 | NUR ---
Report given to date night sitter RN for continuity of care. Patient stable condition. No distress. On bilateral wrist restraints for safety.
[2021-12-04] MEDS: ATORVASTATIN 20 MG TABLET PO SCH (20:15)
[2021-12-04] MEDS: METOPROLOL TARTRATE 50 MG TABLET PO SCH (20:15)
[2021-12-04] MEDS: GABAPENTIN 300 MG CAPSULE PO SCH (20:15)
[2021-12-04] MEDS: FUROSEMIDE 40 MG TABLET PO SCH (20:16)
--- NOTE | 2021-12-04 20:45 | NUR ---
HIGH ALERT NOTE: Called Dr. Herrera back at [phone] identified within the medical roster to verify physician authenticity.
--- NOTE | 2021-12-04 20:45 | NUR ---
Paged Dr. Herrera for heart rate 130's. Spoke with Jessenia. Awaiting callback.
[2021-12-04] MEDS ORDERED: METOPROLOL TARTRATE 5 MG/5 ML VIAL IVP ONE (21:00)
--- NOTE | 2021-12-04 21:22 | NUR ---
Metoprolol IVP Pt's HR 130's, Metoprolol 2.5mg IVP administered per MD order as needed. HR down to 80's, BP stable. To monitor.
[2021-12-05 00:46] VITALS: BP_SYST 96
--- NOTE | 2021-12-05 02:30 | NUR ---
Rounds Pt asleep, no s/s distress noted. Bolivar catheter with light red drainage draining to quality. Call light within reach. To monitor .
[2021-12-05] MEDS ORDERED: METOPROLOL TARTRATE 5 MG/5 ML VIAL IVP PRN (04:00)
[2021-12-05] MEDS: IPRATROPIUM/ALBUTEROL SULFATE 3 ML AMPUL.NEB (DUONEB) INH SCH ×4 (05:34→22:40)
[2021-12-05] MEDS: INSULIN REGULAR, HUMAN 100 UNITS/ML, 10 ML VIAL (humuLIN R) SUBCUT PRN ×4 (06:13→21:36)
--- NOTE | 2021-12-05 06:15 | NUR ---
Closing notes Pt asleep, easily awakens, no s/s distress noted. O2 2L on via NC. BS checked 172, 2 units Regular insulin administered per protocol. Bolivar catheter draining to gravity with red drainage, no clots noted. Pt encouraged to call nurse for assistance and to not removed restraints. IV L. AC 22G saline locked clear and patent. Bed low, locked, siderails up x4, alarm on. To endorse to AM nurse.
[2021-12-05 06:42] LABS: BASOPHILS # (AUTO) 0.1 K/uL (0.0-0.2); BASOPHILS % (AUTO) 0.8 % (0.0-2.0); EOSINOPHILS # (AUTO) 1.4 K/uL (0.0-0.4); EOSINOPHILS % (AUTO) 11.4 % (0.0-4.0); HEMATOCRIT 24.2 % (36-54); HEMOGLOBIN 8.1 g/dL (14.0-18.0); LYMPHOCYTES # (AUTO) 1.8 K/uL (1.0-5.5); LYMPHOCYTES % (AUTO) 14.4 % (20.5-51.5); MEAN CORPUSCULAR HEMOGLOBIN 30 pg (27-31); MEAN CORPUSCULAR HGB CONC 34 % (32-36); MEAN CORPUSCULAR VOLUME 90 fL (79.0-98.0); MONOCYTES # (AUTO) 0.8 K/uL (0.0-1.0); NEUTROPHILS # (AUTO) 8.5 K/uL (1.8-7.7); NEUTROPHILS % (AUTO) 67.4 % (40.0-70.0); PLATELET COUNT (AUTO) 280 K/uL (130-430); RED CELL DISTRIBUTION WIDTH 14.7 % (9.0-15.0); WHITE BLOOD COUNT (AUTO) 12.6 K/uL (4.8-10.8)
[2021-12-05 07:07] LABS: ALANINE AMINOTRANSFERASE 33 U/L (12-78); ALBUMIN 2.4 g/dL (3.4-4.8); ASPARTATE AMINOTRANSFERASE 32 U/L (10-37); CALCIUM 9.1 mg/dL (8.4-11.0); CHLORIDE 96 mmol/L (98-107); CREATININE 1.86 mg/dL (0.55-1.30); GLUCOSE 180 mg/dL (70-99); TOTAL BILIRUBIN 0.3 mg/dL (0.0-1.0); UREA NITROGEN, BLOOD 38 mg/dL (8-21)
--- NOTE | 2021-12-05 07:15 | NUR ---
OPENING NOTE Patient sitting up in bed, no sign of distress and patient denies pain. Nasal cannula in place on 2L, oxygen saturation 95%. Patient is calm and cooperative, he is not making any attempts to pull at his macdonald or IV site, restraints removed at this time. Macdonald catheter is patent and draining pink urine to gravity. All needs met at this time and safety checks made.
[2021-12-05 07:42] LABS: GFR AFRICAN AMERICAN 47 mL/min (>90)
[2021-12-05 07:43] LABS: ANION GAP < 3 (5-15)
--- NOTE | 2021-12-05 07:43 | NUR ---
CRITICAL LAB: Laboratory called with critical lab value Co2 49. Medical record number and patient name verified. Read back of values done. Dr Herrera and Dr Timmons notified of value. New orders given at this time.
[2021-12-05 08:00] VITALS: BP_SYST 96
--- NOTE | 2021-12-05 08:16 | NUR ---
AT BEDSIDE Dr Timmons at bedside, informed him of the patient's critical lab value, CO2 49. ABG order received.
--- NOTE | 2021-12-05 08:39 | NUR ---
CRITICAL LAB: Iesha from respiratory called with critical lab value ABG result. Medical record number and patient name verified. Read back of values done. Dr Herrera notified of value. No new orders given at this time.
[2021-12-05] MEDS: LACTULOSE 20 GM/30 ML UDC PO SCH (08:53)
[2021-12-05] MEDS: METOPROLOL TARTRATE 50 MG TABLET PO SCH ×2 (08:53→21:00)
[2021-12-05] MEDS: ASPIRIN 81 MG TAB.CHEW PO SCH (08:53)
[2021-12-05] MEDS: TAMSULOSIN HCL 0.4 MG CAP PO SCH (08:54)
[2021-12-05] MEDS: PANTOPRAZOLE SODIUM 40 MG TAB PO SCH (08:54)
[2021-12-05] MEDS: CLOPIDOGREL BISULFATE 75 MG TABLET PO SCH (08:54)
[2021-12-05] MEDS: SPIRONOLACTONE 25 MG TABLET (ALDACTONE) PO SCH (08:57)
[2021-12-05] MEDS: FUROSEMIDE 40 MG TABLET PO SCH (08:58)
[2021-12-05] MEDS: metOLazone 2.5 MG TABLET PO SCH (08:58)
[2021-12-05] MEDS ORDERED: POTASSIUM CHLORIDE 20 MEQ TAB.PRT.SR PO ONE (09:30)
[2021-12-05 12:55] VITALS: BP_SYST 101
--- NOTE | 2021-12-05 13:20 | NUR ---
SPOKE WITH [facility] Spoke with Little, at [facility]. She stated that the patient was accepted at the facility and would be going to room 2A. Little stated she would be in contact with the outpatient case manager with this information.
[2021-12-05 16:00] VITALS: BP_SYST 99
--- NOTE | 2021-12-05 16:00 | NUR ---
UPDATED PATIENT ON HIS PLAN OF CARE Patient expressed frustration that he did not know what was going on with his care. Updated the patient on his plan of care and answered all of his questions. Patient verbalized understanding. All needs met at this time.
--- NOTE | 2021-12-05 16:56 | NUR ---
CM: DC Plan to snf: per kodi Mccloud /Evelio mg : the pt. is accepted to [facility] room 2A, report # [phone] Guerrero for dc order , said the pt is not ready yet.
--- NOTE | 2021-12-05 20:01 | NUR ---
CLOSING NOTE Patient sitting up in bed, no sign of distress and denies pain. Macdonald catheter is patent and draining red urine to gravity. Patient's macdonald was irrigated during the shift and several blood clots were removed. Patient is up to date on his plan of care. Patient had one bout of loose stool at 1800, patient and linen were changed. All needs met at this time and safety checks made. Endorsed to material handler 1st shift nurse.
[2021-12-05 20:17] VITALS: BP_SYST 88
[2021-12-05] MEDS: EMOLLIENT COMBINATION NO.73 78 GM CREAM..G. TP SCH (21:00)
[2021-12-05] MEDS: GABAPENTIN 300 MG CAPSULE PO SCH (21:20)
[2021-12-05] MEDS: ATORVASTATIN 20 MG TABLET PO SCH (21:20)
[2021-12-06] VITALS (10 sets, daily range): BP systolic 81–125
--- NOTE | 2021-12-06 03:49 | NUR ---
Closing note- Pt awake and oriented x 3. on O2 2l/min via N/C. Able to lay down with 1 pillow. No c/o SOB. F/C -still with hematuria. Irrigated with NS 120 ml q shift and prn for clots. Fluid restriction 1000 ml/day. blanchable redness on bilateral buttocks. Turned and encouraged to shift weight. Bilateral leg-dry. No edema. Tele-controlled A-FIB. Held Lopressor 21 pm dose due to low bp -sbp's 80's to 90's.
[2021-12-06] MEDS: IPRATROPIUM/ALBUTEROL SULFATE 3 ML AMPUL.NEB (DUONEB) INH SCH ×3 (04:17→13:39)
[2021-12-06] MEDS: INSULIN REGULAR, HUMAN 100 UNITS/ML, 10 ML VIAL (humuLIN R) SUBCUT PRN ×3 (06:28→17:24)
[2021-12-06 06:36] LABS: BASOPHILS # (AUTO) 0.1 K/uL (0.0-0.2); BASOPHILS % (AUTO) 1.1 % (0.0-2.0); EOSINOPHILS # (AUTO) 1.5 K/uL (0.0-0.4); EOSINOPHILS % (AUTO) 12.1 % (0.0-4.0); LYMPHOCYTES # (AUTO) 2.1 K/uL (1.0-5.5); LYMPHOCYTES % (AUTO) 17.2 % (20.5-51.5); MEAN CORPUSCULAR HEMOGLOBIN 30 pg (27-31); MEAN CORPUSCULAR HGB CONC 34 % (32-36); MEAN CORPUSCULAR VOLUME 90 fL (79.0-98.0); MONOCYTES # (AUTO) 0.7 K/uL (0.0-1.0); MONOCYTES % (AUTO) 5.8 % (1.7-9.3); NEUTROPHILS # (AUTO) 7.9 K/uL (1.8-7.7); NEUTROPHILS % (AUTO) 63.8 % (40.0-70.0); PLATELET COUNT (AUTO) 289 K/uL (130-430); RED BLOOD CELL COUNT(AUTO) 2.41 MIL/uL (4.2-6.2); RED CELL DISTRIBUTION WIDTH 14.6 % (9.0-15.0); WHITE BLOOD COUNT (AUTO) 12.4 K/uL (4.8-10.8)
[2021-12-06 06:57] LABS: ALANINE AMINOTRANSFERASE 32 U/L (12-78); ALBUMIN 2.2 g/dL (3.4-4.8); ASPARTATE AMINOTRANSFERASE 29 U/L (10-37); CALCIUM 8.9 mg/dL (8.4-11.0); CREATININE 2.06 mg/dL (0.55-1.30); GLUCOSE 187 mg/dL (70-99); POTASSIUM 3.2 mmol/L (3.5-5.1); TOTAL BILIRUBIN 0.3 mg/dL (0.0-1.0); UREA NITROGEN, BLOOD 54 mg/dL (8-21)
[2021-12-06 07:15] LABS: CHLORIDE 96 mmol/L (98-107)
[2021-12-06 07:44] LABS: GFR AFRICAN AMERICAN 41 mL/min (>90)
[2021-12-06 07:45] LABS: ANION GAP < 3 (5-15)
[2021-12-06 08:27] LABS: HEMATOCRIT 21.7 % (36-54); HEMOGLOBIN 7.3 g/dL (14.0-18.0)
[2021-12-06] MEDS: METOPROLOL TARTRATE 50 MG TABLET PO SCH ×3 (08:58→21:06)
[2021-12-06] MEDS: PANTOPRAZOLE SODIUM 40 MG TAB PO SCH (08:58)
[2021-12-06] MEDS: SPIRONOLACTONE 25 MG TABLET (ALDACTONE) PO SCH ×2 (08:59→14:14)
[2021-12-06] MEDS: metOLazone 2.5 MG TABLET PO SCH (09:00)
[2021-12-06] MEDS: LACTULOSE 20 GM/30 ML UDC PO SCH (09:00)
[2021-12-06] MEDS: TAMSULOSIN HCL 0.4 MG CAP PO SCH (09:00)
[2021-12-06] MEDS: CLOPIDOGREL BISULFATE 75 MG TABLET PO SCH ×2 (09:00→09:28)
[2021-12-06] MEDS: EMOLLIENT COMBINATION NO.73 78 GM CREAM..G. TP SCH ×3 (09:00→21:07)
[2021-12-06] MEDS: ASPIRIN 81 MG TAB.CHEW PO SCH (09:00)
--- NOTE | 2021-12-06 13:30 | NUR ---
0900 OK to keep Plavix per Dental Laboratory Technician 1330 change to 18fr 3way for CBI [address] Waddell who covers Dr. Salgado that patient has been low bp on and off. mentioned keep monitor and check CBC tomorrow morning.
--- NOTE | 2021-12-06 15:31 | NUR ---
CM: Updated kodi Mccloud at [facility] # [phone]: the pt is not stable for discharge today d/t pending TB Gold result and acute hematuria[facility] on will call[facility] # [phone].
[2021-12-06 17:51] LABS: TOTAL IRON BIND. CAPACITY 139 ug/dL (250-450)
--- NOTE | 2021-12-06 19:00 | NUR ---
Received pt from outgoing nurse,awake alert and oriented x 4 communicating and answering questions regarding plan of care.vitals updated
[2021-12-06] MEDS: ATORVASTATIN 20 MG TABLET PO SCH (21:04)
[2021-12-06] MEDS: GABAPENTIN 300 MG CAPSULE PO SCH (21:04)
[2021-12-07] VITALS (8 sets, daily range): BP systolic 78–104
[2021-12-07] MEDS: IPRATROPIUM/ALBUTEROL SULFATE 3 ML AMPUL.NEB (DUONEB) INH SCH ×5 (00:51→20:20)
--- NOTE | 2021-12-07 04:00 | NUR ---
ANTONIO CATHETER DRAINING BAG AT GRAVITY,VITALS UPDATED
--- NOTE | 2021-12-07 06:00 | NUR ---
AWAKE AND ORIENTED, BLADDER IRRIGATION IN PROGRESS
--- NOTE | 2021-12-07 08:00 | NUR ---
Mr Thomas has been assessed as indicated. He has been noted to be both pleasant and cooperative. He denies pain. continuos bladder irrigation continues. The output is pickett red in color. He continues to have SBP in the 90's MD aware. AM antihypertensive medications were held. AM diuretic medications were held. Doses have been adjusted and parameters put in place. he expresses concern over weakness he has been encouraged to be patient with himself. He has been recovering friom CABG since September of 2021. He is resting quietly
[2021-12-07] MEDS ORDERED: acetaZOLAMIDE 250 MG TABLET (DIAMOX) PO SCH (09:00)
[2021-12-07] MEDS: METOPROLOL TARTRATE 50 MG TABLET PO SCH (09:00)
[2021-12-07] MEDS: SPIRONOLACTONE 25 MG TABLET (ALDACTONE) PO SCH (09:00)
[2021-12-07] MEDS: TAMSULOSIN HCL 0.4 MG CAP PO SCH (09:25)
[2021-12-07] MEDS: ASPIRIN 81 MG TAB.CHEW PO SCH (09:25)
[2021-12-07] MEDS: CLOPIDOGREL BISULFATE 75 MG TABLET PO SCH (09:25)
[2021-12-07] MEDS: PANTOPRAZOLE SODIUM 40 MG TAB PO SCH (09:25)
[2021-12-07] MEDS: EMOLLIENT COMBINATION NO.73 78 GM CREAM..G. TP SCH ×2 (09:26→20:42)
[2021-12-07] MEDS: LACTULOSE 20 GM/30 ML UDC PO SCH (09:26)
[2021-12-07] MEDS ORDERED: FUROSEMIDE 40 MG/4 ML VIAL IVP ONE (10:15)
--- NOTE | 2021-12-07 10:15 | NUR ---
CM: TB GOLD: not done timely, called lab followed up on the lab result for the order on 12/04. Finding that the order was cancelled on 12/05 by lab staff. The order then was reinstated for the new specimen collection.
[2021-12-07] MEDS ORDERED: METOPROLOL TARTRATE 25 MG TABLET PO ONE (11:30)
[2021-12-07] MEDS ORDERED: FUROSEMIDE 40 MG TABLET PO ONE (11:30)
--- NOTE | 2021-12-07 12:00 | NUR ---
My Thomas continues to deny pain. He did walk with PT with a walker. He is very pleased with the progress CBI continues with pickett red out out no clots noted. He has been assisted back to bed and has no s/s of distress or discomfort at this time
[2021-12-07] MEDS: INSULIN REGULAR, HUMAN 100 UNITS/ML, 10 ML VIAL (humuLIN R) SUBCUT PRN ×3 (12:39→21:08)
--- NOTE | 2021-12-07 18:00 | NUR ---
Evening blood sugar has been covered according to [employer] coverage. Mr Thomas states that he has not been able to speak to his son AMINA. he does not recall the number and his personal cell phone will not hold a charge. With his verbal consent this selling underwriter reached out to both numbers on his face sheet to obtain the number. Samra Krueger his sister could not be contacted. The listed number was a non working number. his friend Clarisa Miramontes could not be reached either.
--- NOTE | 2021-12-07 19:00 | NUR ---
opening receive pt from day nurse. pt in bed alert, awake and stable at this time. no c/o pain or distress noted at this time. vitals taken and within normal limits resp even while on NC 02 99%. pt is currently on continuos bladder irrigation urine dark mick color pt tolerating well, macdonald in place and patent. encourage pt to call if needs assistance. call light in reach bed to lowest position.
--- NOTE | 2021-12-07 19:25 | NUR ---
Handoff has been given to Gasper Bautista
[2021-12-07] MEDS: GABAPENTIN 300 MG CAPSULE PO SCH (20:43)
[2021-12-07] MEDS: METOPROLOL TARTRATE 25 MG TABLET PO SCH (20:43)
[2021-12-07] MEDS: ATORVASTATIN 20 MG TABLET PO SCH (20:43)
[2021-12-08] MEDS: IPRATROPIUM/ALBUTEROL SULFATE 3 ML AMPUL.NEB (DUONEB) INH SCH ×5 (00:16→19:55)
[2021-12-08 01:10] VITALS: BP_SYST 94
[2021-12-08 06:58] LABS: BASOPHILS # (AUTO) 0.1 K/uL (0.0-0.2); EOSINOPHILS % (AUTO) 8.3 % (0.0-4.0); LYMPHOCYTES % (AUTO) 16.6 % (20.5-51.5); MEAN CORPUSCULAR HEMOGLOBIN 31 pg (27-31); MEAN CORPUSCULAR HGB CONC 34 % (32-36); MEAN CORPUSCULAR VOLUME 90 fL (79.0-98.0); MONOCYTES # (AUTO) 0.6 K/uL (0.0-1.0); MONOCYTES % (AUTO) 5.2 % (1.7-9.3); NEUTROPHILS # (AUTO) 8.1 K/uL (1.8-7.7); NEUTROPHILS % (AUTO) 68.9 % (40.0-70.0); PLATELET COUNT (AUTO) 273 K/uL (130-430); RED BLOOD CELL COUNT(AUTO) 2.02 MIL/uL (4.2-6.2); RED CELL DISTRIBUTION WIDTH 14.6 % (9.0-15.0); WHITE BLOOD COUNT (AUTO) 11.8 K/uL (4.8-10.8)
[2021-12-08 07:24] LABS: ALBUMIN 2.2 g/dL (3.4-4.8); CALCIUM 8.3 mg/dL (8.4-11.0); CREATININE 1.68 mg/dL (0.55-1.30); POTASSIUM 3.2 mmol/L (3.5-5.1); TOTAL BILIRUBIN 0.2 mg/dL (0.0-1.0)
[2021-12-08 08:00] VITALS: BP_SYST 94
--- NOTE | 2021-12-08 08:00 | NUR ---
Recd pt a/ox4. am assessment done and charted. cbi infusing to macdonald cath per md order.
[2021-12-08 08:44] LABS: HEMATOCRIT 18.1 % (36-54); HEMOGLOBIN 6.2 g/dL (14.0-18.0)
[2021-12-08] MEDS: ASPIRIN 81 MG TAB.CHEW PO SCH (09:00)
[2021-12-08] MEDS: METOPROLOL TARTRATE 25 MG TABLET PO SCH ×2 (09:00→21:40)
[2021-12-08] MEDS ORDERED: FUROSEMIDE 40 MG/4 ML VIAL IVP SCH (09:00)
--- NOTE | 2021-12-08 09:00 | NUR ---
Notified DR Soni k=3.2, hg=6.2, co2=41. abg ordered and done and DR Soni aware of results. KCL 40meq iv started per md order.
[2021-12-08] MEDS: LACTULOSE 20 GM/30 ML UDC PO SCH (09:39)
[2021-12-08] MEDS: TAMSULOSIN HCL 0.4 MG CAP PO SCH (09:39)
[2021-12-08] MEDS: CLOPIDOGREL BISULFATE 75 MG TABLET PO SCH (09:40)
[2021-12-08] MEDS: PANTOPRAZOLE SODIUM 40 MG TAB PO SCH (09:40)
[2021-12-08] MEDS: EMOLLIENT COMBINATION NO.73 78 GM CREAM..G. TP SCH ×2 (09:40→21:42)
[2021-12-08] MEDS ORDERED: KCL 40 mEq in 100 mL (PREMIX) 100 ML IV ONE (09:45)
[2021-12-08] MEDS ORDERED: POTASSIUM CHLORIDE 40 MEQ in NS 250 ML IV ONE (10:00)
--- NOTE | 2021-12-08 11:04 | NUR ---
CONSULTATION PAGED REASON FOR CONSULTATION:HEMATURIA WAS CONSULT CALED?Y PERSON WHO WAS NOTIFIED:ALTAF TORRE CONSULTING PHYSICIAN:ALTAF TORRE FLOOR PLAN ADJUSTER SPECIALTY:UROLOGY FLOOR PLAN ADJUSTER PHONE [phone]: REQUESTING PHYSICIAN:NINA MIKE
[2021-12-08] MEDS: INSULIN REGULAR, HUMAN 100 UNITS/ML, 10 ML VIAL (humuLIN R) SUBCUT PRN ×2 (11:21→17:23)
[2021-12-08 12:00] VITALS: BP_SYST 96
--- NOTE | 2021-12-08 14:00 | NUR ---
PRBC started transfusion per md order. hg=6.2. Transfusion record form completed per protocol. new iv started to right FA #22 prior to blood transfusion. Will continue to monitor pt closely.
[2021-12-08 16:00] VITALS: BP_SYST 99
--- NOTE | 2021-12-08 18:12 | NUR ---
PRBC completed, pt w/o blood reaction noted. VSS. Encourage pt to eat dinner.
[2021-12-08 20:15] VITALS: BP_SYST 98
[2021-12-08] MEDS: ATORVASTATIN 20 MG TABLET PO SCH (21:40)
[2021-12-08] MEDS: GABAPENTIN 300 MG CAPSULE PO SCH (21:40)
[2021-12-09] VITALS: BP_SYST 97
[2021-12-09] MEDS: IPRATROPIUM/ALBUTEROL SULFATE 3 ML AMPUL.NEB (DUONEB) INH SCH ×4 (01:00→20:38)
--- NOTE | 2021-12-09 06:14 | NUR ---
NOTE MD ORDERS FOR CBI- PATIENT TOLERATED WELL, URINE NOTED A CUI COLOR WITH 3500ML INTAKE NOTE I/O'S FOR OUTPUT. WILL CONTINUE POC AND REPORT TO ONCOMING NURSE.
[2021-12-09] MEDS: INSULIN REGULAR, HUMAN 100 UNITS/ML, 10 ML VIAL (humuLIN R) SUBCUT PRN ×4 (06:28→22:02)
[2021-12-09 07:43] LABS: BASOPHILS # (AUTO) 0.2 K/uL (0.0-0.2); BASOPHILS % (AUTO) 1.3 % (0.0-2.0); EOSINOPHILS % (AUTO) 7.3 % (0.0-4.0); HEMATOCRIT 22.6 % (36-54); HEMOGLOBIN 7.7 g/dL (14.0-18.0); LYMPHOCYTES # (AUTO) 2.3 K/uL (1.0-5.5); LYMPHOCYTES % (AUTO) 17.3 % (20.5-51.5); MEAN CORPUSCULAR HEMOGLOBIN 31 pg (27-31); MEAN CORPUSCULAR HGB CONC 34 % (32-36); MEAN CORPUSCULAR VOLUME 91 fL (79.0-98.0); MONOCYTES # (AUTO) 0.8 K/uL (0.0-1.0); MONOCYTES % (AUTO) 5.7 % (1.7-9.3); NEUTROPHILS # (AUTO) 9.1 K/uL (1.8-7.7); NEUTROPHILS % (AUTO) 68.4 % (40.0-70.0); PLATELET COUNT (AUTO) 287 K/uL (130-430); RED BLOOD CELL COUNT(AUTO) 2.49 MIL/uL (4.2-6.2); RED CELL DISTRIBUTION WIDTH 14.8 % (9.0-15.0); WHITE BLOOD COUNT (AUTO) 13.3 K/uL (4.8-10.8)
[2021-12-09 08:00] VITALS: BP_SYST 90
[2021-12-09 08:00] LABS: CALCIUM 7.8 mg/dL (8.4-11.0); CREATININE 1.63 mg/dL (0.55-1.30); POTASSIUM 3.8 mmol/L (3.5-5.1)
[2021-12-09 08:05] LABS: ALBUMIN 2.2 g/dL (3.4-4.8); TOTAL BILIRUBIN 0.2 mg/dL (0.0-1.0)
[2021-12-09] MEDS ORDERED: FUROSEMIDE 40 MG TABLET PO SCH ×2 (09:00)
[2021-12-09] MEDS: CLOPIDOGREL BISULFATE 75 MG TABLET PO SCH (09:00)
[2021-12-09] MEDS: METOPROLOL TARTRATE 25 MG TABLET PO SCH ×2 (09:00→21:00)
[2021-12-09] MEDS: ASPIRIN 81 MG TAB.CHEW PO SCH (09:00)
[2021-12-09] MEDS: LACTULOSE 20 GM/30 ML UDC PO SCH (09:18)
[2021-12-09] MEDS: TAMSULOSIN HCL 0.4 MG CAP PO SCH (09:18)
[2021-12-09] MEDS: PANTOPRAZOLE SODIUM 40 MG TAB PO SCH (09:20)
[2021-12-09] MEDS: EMOLLIENT COMBINATION NO.73 78 GM CREAM..G. TP SCH ×2 (09:20→21:25)
--- NOTE | 2021-12-09 09:20 | NUR ---
Dr Herrera at the bedside, stating hold lasix and lopressor due to low bp 90/61, and also to hold aspirin and plavix due to bloody urine. so medication held. Assisted pt up to the bedside commode, all linen changed, assisted with bed bath and assisted with oral care. pt tolerating well. will continue to monitor pt closely.
--- NOTE | 2021-12-09 11:00 | NUR ---
Assisted pt to commode, unable to have BM, administered lactolose per md order. Escorted back to bed.
[2021-12-09 12:00] VITALS: BP_SYST 95
--- NOTE | 2021-12-09 12:20 | NUR ---
Nutrition F/U Admitting Diagnosis NSTEMI, pneumonia Reviewed Pertinent Medical/Surgical Hx Medical Record Patient Medical History Comment: PMH: CAD, CABG, neuropathy, essential HTN, IDDM, atr fibr, and severe cardiomyopathy per physician notes Pt also found w/ CHF, CAD, fever likely pneumonia, and CKD per physician notes Subjective Information: Attempted to visit the patient x2 today, the patient was on the bedside commode at first visit then sleeping soundly at second visit, not able to wake the patient. Per EMR review, the patient was transferred to [facility], continues to have hematuria, CBI ordered per nursing documentation, NOEMI is stable per MD note. LBM 12/06; 2+ pitting edema to BLE ongoing. Current Diet Order/Nutrition Support: CCHO, Cardiac diet, Glucerna BID, Antonio BID x5 days Education Provided: not Indicated Pertinent Medications: Protonix, Regular ISS Pertinent Labs: Na 135(L), BUN 35(H), creatinine 1.63(H), glucose 195(H), POC glucose range: 176-263(H) Height (Feet) 5 feet Height (Inches) 10.00 inches Weight (Pounds) 234 pounds -- stable since 11/29 Patient Weight 106.141 kg Body Mass Index 33.57 kg/m2 %IBW 141 [place]/Adjusted Body Weight 166#/75.5 kg. 183#/83.2 kg Recent Weight Change Unable to verify Weight Status Obese Food Allergies Unable to verify Usual Diet At Home CCHO per nursing nutritional screening Skin Integrity Comment: Diego scale: 18 on 12/08/21 @ 1915 Estimated Energy Expenditure (kcals/day) 9599-3588 (30-35 kcal/kg IBW d/t acute state, wound healing, obesity) Estimated Protein Required (g/day) 91-113 (1.2-1.5 gm/kg IBW d/t acute state, wound healing, obesity) Estimated Fluid Required (l/day) Per physician d/t CHF Problem/Etiology/Signs/Symptoms Increased nutritional needs R/T metabolic demands AEB estimated nutritional requirements for acute state/wound healing. *Ongoing Altered nutrition-related labs R/T endocrine dysfunction AEB elevated BG/POC BG lab values. *Ongoing Expected Outcomes/Goals - Monitor appetite and PO intakes w/ goal of pt meeting >75% of estimated nutritional needs, labs trending WNL, normal GI function, and skin integrity/wt maintenance Dietitian Recommendations * Continue CCHO, cardiac diet, Glucerna BID, Antonio BID (supplements yield an additional 840 kcal/day, 35 gm protein/day) * Maximum encouragement at meal times to increase PO intakes Follow Up High Risk: F/U in 2-3 days
--- NOTE | 2021-12-09 12:34 | NUR ---
Dietitian Recommendations * Continue CCHO, cardiac diet, Glucerna BID, Antonio BID (supplements yield an additional 840 kcal/day, 35 gm protein/day) * Maximum encouragement at meal times to increase PO intakes Please refer to nutrition follow up for details. PS, RD
[2021-12-09 16:00] VITALS: BP_SYST 99
--- NOTE | 2021-12-09 16:02 | NUR ---
UROLOGIST DR Valentina HI WAS CALLED, RE: IRRIGATION IS NOT WORKING, FC IS LEAKING, STOMACH IS DISTENDED. LEFT A VOICE MESSAGE ON HIS OFFICE NUMBER AND CELL.
[2021-12-09 20:15] VITALS: BP_SYST 99
[2021-12-09] MEDS: ATORVASTATIN 20 MG TABLET PO SCH (21:24)
[2021-12-09] MEDS: GABAPENTIN 300 MG CAPSULE PO SCH (21:24)
[2021-12-10] VITALS: BP_SYST 98
[2021-12-10] MEDS: INSULIN REGULAR, HUMAN 100 UNITS/ML, 10 ML VIAL (humuLIN R) SUBCUT PRN ×3 (06:55→17:39)
[2021-12-10] MEDS: IPRATROPIUM/ALBUTEROL SULFATE 3 ML AMPUL.NEB (DUONEB) INH SCH ×3 (07:21→20:12)
[2021-12-10] MEDS: METOPROLOL TARTRATE 25 MG TABLET PO SCH (08:27)
[2021-12-10] MEDS: TAMSULOSIN HCL 0.4 MG CAP PO SCH (08:38)
[2021-12-10] MEDS: PANTOPRAZOLE SODIUM 40 MG TAB PO SCH (08:38)
[2021-12-10] MEDS: ASPIRIN 81 MG TAB.CHEW PO SCH (08:38)
[2021-12-10] MEDS: LACTULOSE 20 GM/30 ML UDC PO SCH (08:38)
[2021-12-10] MEDS: EMOLLIENT COMBINATION NO.73 78 GM CREAM..G. TP SCH (08:42)
[2021-12-10 10:00] VITALS: BP_SYST 138
[2021-12-10] MEDS ORDERED: FLUCONAZOLE 100 mg/ NS 50 ML IV SCH (11:00)
[2021-12-10 12:54] VITALS: BP_SYST 113
--- NOTE | 2021-12-10 14:00 | NUR ---
EDUCATION AND DEVELOPMENT MANAGER ACSW Adelaida responded to a Hospice Eval request. ACSW contacted [facility] to inquire into contracted hospice providers. According to [facility], [facility] will be addressing hospice order following transfer to [facility]. As requested by Jeanna, ACSW faxed copy of Hospice Order to [facility]. As requested by [facility], ACSW updated assigned RN Trina of pickup time of after 4pm to [facility] Room 4B. ACSW will continue to be available as needed.
--- NOTE | 2021-12-10 18:08 | NUR ---
rn notes patient to go to [facility]. Report given and they have taken the patient. Plan is to have the EMT after 1600 to [facility] patient, currently waiting for them.
[2021-12-10 20:00] VITALS: BP_SYST 110
--- NOTE | 2021-12-10 21:28 | NUR ---
[facility] EMS X2 STAFF AT BEDSIDE TO TRANSPORT PATIENT TO RECEIVING FACILITY- DISCHARGE PACKET/ INSTRUCTION AND ALL PERSONAL BELONGINGS SENT WITH PATIENT. IV SITE AND TELE MONITOR REMOVED. NOTE MD ORDERS TO LEAVE ANTONIO CATHETER. PATIENT FREE OF S/S OF DISTRESS OR C/O. SKIN INTEGRITY REMAINS NOTED IN LAST ASSESSMENT. CHARGE NURSE AWARE.
--- NOTE | 2021-12-11 11:08 | NUR ---
PHYSICAL THERAPY CO-SIGN The Physical Therapy Progress Notes documented by Motor Equipment Lieutenant have been reviewed. Reviewed/Co-Signed by: Kayden Mock Documentation Done by: ROXY OGLESBY PTA Addendum: 12/11/21 at 1109 by Kayden Mock PT Amended: Links added.
== END 2021-12-10 21:50 | DRG 871 ==
LOC: SED 14:41 → SMU 18:42 → STU 22:30 → SIC 12-01 11:35 → STU 12-03 20:40
PROVIDERS: ADMIT Specialist; ATTEND Specialist
PROC: 0W993ZZ Drainage of Right Pleural Cavity, Percutaneous Approach (ICD-10-PCS; principal; 2021-11-29)
PROC: 0W9B3ZZ Drainage of Left Pleural Cavity, Percutaneous Approach (ICD-10-PCS; 2021-12-02)
PROC: 30233N1 Transfusion of Nonautologous Red Blood Cells into Peripheral Vein, Percutaneous Approach (ICD-10-PCS; 2021-12-08)
DX: A41.51 Sepsis due to Escherichia coli [E. coli] (principal); J18.9 Pneumonia, unspecified organism; J96.00 Acute respiratory failure, unspecified whether with hypoxia or hypercapnia; N17.9 Acute kidney failure, unspecified; J44.0 Chronic obstructive pulmonary disease with (acute) lower respiratory infection; I13.0 Hypertensive heart and chronic kidney disease with heart failure and stage 1 through stage 4 chronic kidney disease, or unspecified chronic kidney disease; N18.4 Chronic kidney disease, stage 4 (severe); R18.8 Other ascites; I25.5 Ischemic cardiomyopathy; Z20.822 Contact with and (suspected) exposure to COVID-19; I25.10 Atherosclerotic heart disease of native coronary artery without angina pectoris; I50.9 Heart failure, unspecified; E11.22 Type 2 diabetes mellitus with diabetic chronic kidney disease; E03.9 Hypothyroidism, unspecified; E11.40 Type 2 diabetes mellitus with diabetic neuropathy, unspecified; D63.8 Anemia in other chronic diseases classified elsewhere; Z87.891 Personal history of nicotine dependence; Z95.1 Presence of aortocoronary bypass graft; Z79.82 Long term (current) use of aspirin; Z79.899 Other long term (current) drug therapy; I25.2 Old myocardial infarction
CPT/HCPCS: 32555; 36415; 36600; 71045; 71250-TC; 76376; 76604; 76700-TC; 76856-TC; 80048; 80053; 82140; 82803-TC; 82947; 82962; 83540; 83550; 83605; 83690; 83735; 83880; 84157; 84439; 84443; 84484; 85025; 85044; 85610-TC; 85651-TC; 85730-TC; 86480; 86886; 86900; 86901; 86920; 87040; 87070-TC; 87081; 87116; 88108; 88305; 89051-TC; 89060-TC; 93005; 93306; 93970; 94010; 94640; 94760; 96365; 96368; 96375; 97110-GP; 97116-GP; 97530-GP; 99291; G0378; J0456; J0692; J0696; J1120; J1450; J1644; J1815; J1940; J2001; J2543; J3370; J3480; J3490; J7050; J7060; P9021; U0003